=== PATIENT | female | born 1995 | race African-American/Black ===

== ENCOUNTER 2017-06-18 19:21 | Emergency (ER) | payer OTHER ==
[~2017-06-18] VITALS: Ht 162.6 cm; Wt 74.7 kg
[2017-06-18 19:26] VITALS: BP 132/61; PULSE 125; RESP 18; TEMP 102.8; O2SAT 100
== END 2017-06-18 19:47 | disposition left against medical advice (07) ==
LOC: PHED 19:21
DX: R50.9 Fever, unspecified (principal); Z53.21 Procedure and treatment not carried out due to patient leaving prior to being seen by health care provider
CPT/HCPCS: 99281